=== PATIENT | male | born 1975 | race Caucasian/White ===

== ENCOUNTER 2019-04-03 12:47 | Emergency (ER) | payer MEDICAID ==
[~2019-04-03] VITALS: Ht 175.3 cm; Wt 68.0 kg
[2019-04-03 12:56] VITALS: BP 130/54
--- NOTE | 2019-04-03 13:03 | NUR ---
PT AMBULATED TO BED 4.
[2019-04-03] MEDS ORDERED: ONDANSETRON 4 MG/2 ML VIAL IVP ONE (13:25)
[2019-04-03] MEDS ORDERED: MORPHINE SULFATE 4 MG/ML SYR IVP ONE (13:25)
[2019-04-03 13:35] LABS: BASOPHILS % (AUTO) 0.4 % (0.0-2.0); EOSINOPHILS # (AUTO) 0.1 K/uL (0-0.4); EOSINOPHILS % (AUTO) 1.1 % (0.0-4.0); HEMOGLOBIN 14.9 g/dL (12.0-18.0); LYMPHOCYTES # (AUTO) 1.4 K/uL (2.0-11.5); LYMPHOCYTES % (AUTO) 14.3 % (20.5-51.1); MEAN CORPUSCULAR HEMOGLOBIN 32 pg (27-31); MEAN CORPUSCULAR HGB CONC 34 g/dL (33-37); MONOCYTES # (AUTO) 0.5 K/uL (0.8-1.0); MONOCYTES % (AUTO) 5.1 % (1.7-9.3); NEUTROPHILS # (AUTO) 7.9 K/uL (1.8-7.7); NEUTROPHILS % (AUTO) 79.1 % (42.2-75.2); PLATELET COUNT (AUTO) 181 K/uL (140-450); RED BLOOD CELL COUNT(AUTO) 4.73 MIL/uL (4.20-6.10); RED CELL DISTRIBUTION WIDTH 13.5 % (11.6-13.7)
[2019-04-03 13:55] LABS: ANION GAP 10.6 (8-16); CARBON DIOXIDE 27.5 mmol/L (21-32); POTASSIUM 4.1 mmol/L (3.5-5.1)
[2019-04-03 14:00] LABS: ALBUMIN 3.7 g/dL (3.4-5.0); TOTAL BILIRUBIN 0.8 mg/dL (0.0-1.0)
--- NOTE | 2019-04-03 14:02 | NUR ---
US AT BEDSIDE.
[2019-04-03 14:06] LABS: APPEARANCE,URINE CLEAR (CLEAR); BILIRUBIN,URINE NEGATIVE (NEGATIVE); BLOOD, URINE NEGATIVE (NEGATIVE); COLOR,URINE YELLOW (YELLOW); LEUKOCYTE ESTERASE ,URINE NEGATIVE (NEGATIVE); NITRITE, URINE NEGATIVE (NEGATIVE); PH,URINE 6.5 (5.0-9.0); UGLUCOSE NEGATIVE (NEGATIVE)
[2019-04-03] MEDS ORDERED: cefTRIAXone 250 MG in LIDOCAINE MPF 1% - 5 mL VIAL 0.9 ML IM ONE (15:10)
[2019-04-03] MEDS ORDERED: AZITHROMYCIN 250 MG TAB PO ONE (15:10)
--- NOTE | 2019-04-03 15:40 | NUR ---
Pt's IV on left AC has been removed.
--- NOTE | 2019-04-03 15:43 | NUR ---
Note undone in EDM - 04/03/19 at 1615 by RODGER Patient discharged with v/s stable. Written and verbal after care instructions given and explained. Pt's pain has been improved. Patient alert, oriented and verbalized understanding of instructions. Ambulatory with steady gait. All questions addressed prior to discharge. ID band removed. Patient advised to follow up with PMD. Rx of [place] and Doxycycline given. Patient educated on indication of medication including possible reaction and side effects. Opportunity to ask questions provided and answered.
[2019-04-03 15:50] VITALS: BP 129/77
--- NOTE | 2019-04-03 15:50 | NUR ---
Patient discharged with v/s stable. Written and verbal after care instructions given and explained. Pt's pain has been improved. Patient alert, oriented and verbalized understanding of instructions. Ambulatory with steady gait. All questions addressed prior to discharge. ID band removed. Patient advised to follow up with PMD. Rx of [place] and Doxycycline given. Patient educated on indication of medication including possible reaction and side effects. Opportunity to ask questions provided and answered.
[2019-04-05 06:14] LABS: CHLAMYDIA TRACHOMATIS AMP DNA Negative (Negative)
== END 2019-04-03 15:50 | disposition home or self-care (01) ==
LOC: MED 12:47
DX: N45.3 Epididymo-orchitis (principal); F17.210 Nicotine dependence, cigarettes, uncomplicated
CPT/HCPCS: 36415; 76870; 80053; 81003; 85025; 87086; 96372; 96374; 96375; 99284; J0696; J2001; J2270; J2405; Q0092; 87491